=== PATIENT | male | born 2000 | race Caucasian/White ===

== ENCOUNTER → 2022-08-04 08:12 | Outpatient (CLI) | payer OTHER, SELFPAY ==
--- NOTE | ~2022-08-04 | MR_ITS ---
EXAMINATION: MR knee RT wo con DATE: 08/04/2022 08:46 INDICATION: Right knee pain, swelling and limited range of motion post football injury one month prio r. TECHNIQUE: Magnetic resonance imaging (MRI) of the right knee was performed without intravenous contr ast. Sequences included coronal PD-weighted FSE, coronal PD-weighted FS FSE, sagittal T2-weighted FS E, sagittal PD-weighted FS FSE and axial PD weighted fat saturated FSE. COMPARISON: None. FINDINGS: Medial compartment: Medial meniscus is normal. Articular cartilage is normal. Lateral compartment: Lateral meniscus is normal. Articular cartilage is normal. Patellofemoral compartment: Articular cartilage is normal. Ligaments and tendons: Anterior and posterior cruciate ligaments are normal. The medial collateral ligament and fibular ambreen ateral ligament complex are normal. The extensor mechanism is normal. The visualized medial and later al hamstring tendons as well as the iliotibial band are normal. Fluid: Moderate-sized knee joint effusion. No loose osteochondral bodies identified. Osseous/other: There is marrow edema underlying the posterior aspect of the lateral tibial plateau surrounding a sub tle linear low signal intensity subarticular fracture line. No displacement or evident disruption or angulation of the cortices. Bone marrow signal is otherwise normal. No pathologic marrow replacing pr ocess. IMPRESSION: 1. Nondisplaced intramedullary, likely impaction fracture line underlying the posterior aspect of the lateral tibial plateau. 2. Moderate-sized right knee joint effusion. 2. Normal articular cartilage, menisci and stabilizing ligaments. Reviewed, dictated and finalized at location A. FACTURING MANAGER IMPRESSION: 1. Nondisplaced intramedullary, likely impaction fracture line underlying the p osterior aspect of the lateral tibial plateau. 2. Moderate-sized right knee joint effusion. 2. Normal articular cartilage, menisci and stabilizing ligaments.
== END ==
PROVIDERS: Visit Provider Orthopaedic Surgery
DX: M25.461 Effusion, right knee (principal)
CPT/HCPCS: 73721

== ENCOUNTER 2024-01-15 11:39 | Outpatient (CLI) | payer OTHER, SELFPAY ==
--- NOTE | ~2024-01-15 | MR_ITS ---
EXAMINATION: MR knee RT w con DATE: 01/15/2024 13:33 INDICATION: Right knee pain TECHNIQUE: Magnetic resonance imaging (MRI) of the right knee was performed without intravenous contr ast. Sequences included coronal T1-weighted FS FSE, coronal PD-weighted FS FSE, sagittal T2-weighted FSE, sagittal T1-weighted FS FSE, sagittal PD-weighted FSE, axial T1-weighted FS FSE and axial PD we ighted FS FSE. COMPARISON: 04/03/2022 FINDINGS: Medial compartment: Medial meniscus is normal. Articular cartilage is normal. Lateral compartment: Lateral meniscus is normal. Articular cartilage is normal. Patellofemoral compartment: Articular cartilage is normal. Ligaments and tendons: Anterior and posterior cruciate ligaments are normal. The medial collateral ligament and fibular ambreen ateral ligament complex are normal. The extensor mechanism is normal. The visualized medial and later al hamstring tendons as well as the iliotibial band are normal. Fluid: No loose osteochondral bodies identified. There is a suprapatellar plical band. There is a layering f luid fluid level seen on the sagittal images in the suprapatellar pouch cephalad to the plical band w hich suggests the likely presence of a small knee joint effusion prior to the injection of a gadolini um contrast. There is mild fluid signal without enhancement in the subcutaneous tissues lateral to th e patella likely related to the subcutaneous lidocaine at the site of injection. Osseous/other: Bone alignment is normal. Normal marrow signal. No fracture or pathologic marrow replacing process. IMPRESSION: 1. Possible small joint effusion prior to the contrast injection. Otherwise unremarkable MRI arthrogr am of the right knee with normal bones, cartilage, menisci and stabilizing ligaments. Reviewed, dictated and finalized at location A. IMPRESSION: 1. Possible small joint effusion prior to the contrast injection. Otherwise unr emarkable MRI arthrogram of the right knee with normal bones, cartilage, menisc i and stabilizing ligaments.
--- NOTE | ~2024-01-15 | XR_ITS ---
EXAMINATION: XR fl inj knee RT for MR/CT DATE: 01/15/2024 12:58 INDICATION: Right knee pain TECHNIQUE: A time-out was performed to verify the patient's name, date of , and procedure to b e performed. The procedure including the risks, benefits, and alternatives was discussed with the pat ient. Risks discussed included bleeding and infection. The patient understood the risks and agreed to proceed. The skin overlying the lateral aspect of the right knee joint was prepped and draped in us ua sterile fashion. Anesthetic was administered with 1% lidocaine subcutaneously. A 22 G needle wa s advanced under fluoroscopic guidance into the joint. Injection of 1 mL of Omnipaque 240 confirmed intra-articular position of the needle. Subsequently, injectate consisting of 40 mL of 7:3:2 mixture of sterile saline:Omnipaque 240:1% lidocaine mixed 200:1 with 529 mg/mL Multihance gadolinium contra st was was injected with intermittent fluoroscopy confirming intra-articular administration. The nee dle was removed and the entry site was cleaned and dressed. There were no immediate complications. F luoroscopy exposure time was 0.1 minutes. The total number of images was 3. FINDINGS: Real-time fluoroscopy demonstrates the needle and contrast in the right knee joint. IMPRESSION: 1. Right knee injection of a dilute gadolinium contrast mixture for subsequent MRI arthrogram which w ill be dictated separately. Reviewed, dictated and finalized at location A. IMPRESSION: 1. Right knee injection of a dilute gadolinium contrast mixture for subsequent MRI arthrogram which will be dictated separately.
--- NOTE | ~2024-01-15 | MR_ITS ---
EXAMINATION: MR shoulder RT wo con DATE: 01/15/2024 13:47 INDICATION: Right shoulder pain TECHNIQUE: Magnetic resonance imaging (MRI) of the right shoulder was performed without intravenous c ontrast. Sequences included axial PD-weighted FS FSE, coronal oblique PD-weighted FS FSE, coronal obl ique T2-weighted FS FSE, sagittal PD-weighted FS FSE, and sagittal T1-weighted SE. COMPARISON: None. FINDINGS: Coracoacromial arch: The acromion undersurface is curved in morphology (type II). The coracoacromial ligament is normal. A cromion clavicular joint is normal. Rotator cuff: The supraspinatus, infraspinatus and teres minor tendons are normal. The subscapularis tendon is norm al. Normal rotator cuff muscle bulk and signal. Biceps tendon, glenoid labrum and glenohumeral cartilage: Long head of the biceps tendon is normal. The posterior inferior glenoid labrum appear small but with out evident tear. Glenohumeral cartilage is normal. Fluid: Physiologic amount of fluid in the glenohumeral joint and biceps tendon sheath. No loose osteochondr al bodies. No abnormal fluid signal in the subacromial/subdeltoid bursa to suggest bursitis. Bones: Normal marrow signal with no edema, fracture or abnormal marrow replacing process. IMPRESSION: 1. 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 Otherwis e unremarkable right shoulder MRI. Reviewed, dictated and finalized at location A. IMPRESSION: 1. Likely developmentally small posterior and inferior glenoid labrum without d iscrete tear. Otherwise unremarkable right shoulder MRI.
== END 2024-01-15 11:40 ==
LOC: MICIMG 11:41
DX: M25.511 Pain in right shoulder (principal); M25.561 Pain in right knee
CPT/HCPCS: 20610; 73221; 73722; 77002; A9577; Q9967